=== PATIENT | female | born 1995 | race African-American/Black ===

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

== ENCOUNTER 2017-01-05 12:52 | Emergency (ER) | payer MEDICAID ==
[~2017-01-05] VITALS: Ht 160 cm; Wt 64.0 kg
[2017-01-05] MEDS ORDERED: SODIUM CHLORIDE 0.9% 1,000 ML IV ONE (13:30)
[2017-01-05] MEDS ORDERED: MORPHINE SULFATE 4 MG/ML CPJ (NOT FOR IM USE) IV STA (13:30)
[2017-01-05] MEDS ORDERED: ONDANSETRON HCL 4MG/2ML VIAL IV STA (13:30)
[2017-01-05 14:14] LABS: CLARITY URINE CLEAR (CLEAR); COLOR URINE YELLOW (YELLOW); GLUCOSE URINE NEGATIVE (NEGATIVE); KETONES URINE NEGATIVE (NEGATIVE); LEUKOCYTE ESTERASE URINE TRACE (NEGATIVE); NITRITE URINE NEGATIVE (NEGATIVE); OCCULT BLOOD URINE NEGATIVE (NEGATIVE); PROTEIN URINE NEGATIVE (NEGATIVE); SPECIFIC GRAVITY URINE 1.026 (1.005-1.030); UROBILINOGEN URINE 0.2 E.U./dL (0.2-1.0)
[2017-01-05 14:49] LABS: HEMATOCRIT. 40.1 % (36.0-48.0); HEMOGLOBIN. 12.9 g/dL (12.0-16.0); MEAN CORPUSCULAR HEMOGLOBIN 25.8 pg (28.0-32.0); MEAN CORPUSCULAR VOLUME 79.7 fL (81.0-99.0); MEAN PLATELET VOLUME 8.2 fl (7.4-10.4); PLATELET 185 x1000/uL (130-400); RED BLOOD CELL COUNT 5.02 mill/uL (4.2-5.4); RED CELL DISTRIBUTION WIDTH 16.1 % (11.6-14.6)
[2017-01-05 14:55] LABS: CHLORIDE 108 mEq/L (98-107)
[2017-01-05 15:05] LABS: CARBON DIOXIDE 22 mEq/L (21-32)
[2017-01-05 15:18] LABS: HCG SCREEN NEGATIVE
[2017-01-05 16:21] LABS: PLATELET ESTIMATE NORMAL
[2017-01-05 17:10] VITALS: BP 115/69
== END 2017-01-05 17:21 | disposition home or self-care (01) ==
LOC: ER 14:06
DX: R10.9 Unspecified abdominal pain (principal); R11.2 Nausea with vomiting, unspecified; R12 Heartburn
CPT/HCPCS: 36415; 80053; 81001; 83690; 84703; 85025; 96374; 96375; 99284; J2270; J2405; J7030; Z7610

== ENCOUNTER 2017-03-16 16:44 | Emergency (ER) | payer MEDICAID ==
[~2017-03-16] VITALS: Ht 165.1 cm; Wt 63.0 kg
[2017-03-17 00:33] LABS: HCG SCREEN NEGATIVE
[2017-03-17 00:34] LABS: CLARITY URINE TURBID (CLEAR); COLOR URINE YELLOW (YELLOW); GLUCOSE URINE NEGATIVE (NEGATIVE); KETONES URINE 2+ (NEGATIVE); LEUKOCYTE ESTERASE URINE 2+ (NEGATIVE); NITRITE URINE NEGATIVE (NEGATIVE); OCCULT BLOOD URINE 2+ (NEGATIVE); PROTEIN URINE 2+ (NEGATIVE); SPECIFIC GRAVITY URINE 1.031 (1.005-1.030)
[2017-03-17 01:43] VITALS: BP 129/81
== END 2017-03-17 02:12 | disposition home or self-care (01) ==
LOC: ER 17:47
DX: N39.0 Urinary tract infection, site not specified (principal)
CPT/HCPCS: 81001; 81003; 84703; 99283; 99284

== ENCOUNTER 2017-07-04 09:47 | Emergency (ER) | payer MEDICAID ==
[~2017-07-04] VITALS: Ht 162.6 cm; Wt 64.0 kg
[2017-07-04] MEDS ORDERED: PREDNISONE 20MG TABLET PO ONE (11:30)
[2017-07-04] MEDS ORDERED: KETOROLAC 60MG/2ML VIAL IM ONE (11:30)
[2017-07-04 12:03] VITALS: BP 118/79
== END 2017-07-04 13:22 | disposition home or self-care (01) ==
LOC: ER 10:06
DX: J03.90 Acute tonsillitis, unspecified (principal)
CPT/HCPCS: 81025; 87070; 87430; 87804; 96372; 99284; J1885; J7512

== ENCOUNTER 2017-09-13 16:05 | Emergency (ER) | payer MEDICAID ==
[~2017-09-13] VITALS: Ht 162.6 cm; Wt 68.0 kg
[2017-09-13 16:11] VITALS: BP 118/78
[2017-09-13 16:53] LABS: EOSINOPHILS % 1.5 % (0.0-5.0); HEMATOCRIT. 37.1 % (36.0-48.0); HEMOGLOBIN. 12.2 g/dL (12.0-16.0); LYMPHOCYTES % 22.2 % (20.0-50.0); MEAN CORPUSCULAR VOLUME 78.9 fL (81.0-99.0); MEAN PLATELET VOLUME 7.5 fl (7.4-10.4); MONOCYTES % 5.5 % (2.0-8.0); NEUTROPHILS % 69.8 % (40.0-76.0); PLATELET 280 x1000/uL (130-400); RED CELL DISTRIBUTION WIDTH 15.9 % (11.6-14.6)
[2017-09-13 16:55] LABS: HCG SCREEN POSITIVE
[2017-09-13 16:58] LABS: PROTHROMBIN TIME 10.9 sec (9.4-11.6)
[2017-09-13 16:59] LABS: CHLORIDE 106 mEq/L (98-107)
== END 2017-09-14 | disposition left against medical advice (07) ==
LOC: ER 16:05
DX: R10.2 Pelvic and perineal pain (principal); Z98.890 Other specified postprocedural states
CPT/HCPCS: 36415; 80053; 83690; 84703; 85025; 85610; 99284

== ENCOUNTER 2018-01-03 14:03 | Observation (INO) | payer MEDICAID ==
[~2018-01-03] VITALS: Ht 167.6 cm; Wt 67.6 kg
[2018-01-03] MEDS ORDERED: PNV1TABL50 PO (14:25)
[2018-01-03] MEDS ORDERED: FERR325T6 PO (14:26)
[2018-01-03] MEDS ORDERED: CALC-1042 PO (14:27)
[2018-01-03] MEDS ORDERED: FOLI-43 PO (14:28)
== END 2018-01-03 16:10 | disposition home or self-care (01) ==
LOC: L&D 14:03
PROVIDERS: ADMIT Obstetrics & Gynecology; ATTEND Obstetrics & Gynecology
DX: O62.9 Abnormality of forces of labor, unspecified (principal); O26.899 Other specified pregnancy related conditions, unspecified trimester; R10.9 Unspecified abdominal pain; Z3A.00 Weeks of gestation of pregnancy not specified
CPT/HCPCS: 99281; G0378

== ENCOUNTER 2018-04-16 08:29 | Observation (INO) | payer MEDICAID ==
[~2018-04-16] VITALS: Ht 167.6 cm; Wt 77.6 kg
[~2018-04-16 08:29] MED LIST: CALC-1042 PO; FERR325T6 PO; FOLI-43 PO; PNV1TABL50 PO
[2018-04-16] MEDS ORDERED: LACTATED RINGERS 1,000 ML IV SCH (10:15)
== END 2018-04-16 13:00 | disposition home or self-care (01) ==
LOC: L&D 08:29
PROVIDERS: ADMIT Obstetrics & Gynecology; ATTEND Obstetrics & Gynecology
DX: O46.93 Antepartum hemorrhage, unspecified, third trimester (principal); Z3A.36 36 weeks gestation of pregnancy
CPT/HCPCS: 76815; 76818; 99281; G0378; 96360; 96361; J7120

== ENCOUNTER 2018-05-04 19:04 | Inpatient (IN) | payer MEDICAID ==
[~2018-05-04] VITALS: Ht 167.6 cm; Wt 80.7 kg
[2018-05-04] MEDS ORDERED: DEXT 5%/LACTATED RINGERS 1,000 ML IV SCH (20:00)
[2018-05-04] MEDS ORDERED: DEXT 5%/LR + PITOCIN 20UNITS/L 1,000 ML IV SCH (20:52)
[2018-05-04] MEDS ORDERED: LIDOCAINE HCL 1% 20ML VIAL (Pyxis) INJ INFIL SCH (21:00)
[2018-05-04] MEDS ORDERED: METHYLERGONOVINE MALEATE 0.2 MG/ML IM PRN (21:00)
[2018-05-04] MEDS ORDERED: CARBOPROST TROMETHAMINE 250 MCG/ML AMPUL IM PRN (21:00)
[2018-05-04] MEDS ORDERED: MISOPROSTOL 100MCG TABLET VG SCH (21:00)
[2018-05-04] MEDS ORDERED: PENICILLIN G POTASSIUM 5 MMU in DEXT 5% WATER 100 ML IV NR (21:15)
[2018-05-04] MEDS: BUTORPHANOL TARTRATE 2 MG/ML VIAL IV PRN (21:29)
[2018-05-04] MEDS: LACTATED RINGERS 1,000 ML IV SCH (21:29)
[2018-05-04 22:59] LABS: CLARITY URINE CLEAR (CLEAR); COLOR URINE YELLOW (YELLOW); KETONES URINE 3+ (NEGATIVE); LEUKOCYTE ESTERASE URINE 2+ (NEGATIVE); NITRITE URINE NEGATIVE (NEGATIVE); OCCULT BLOOD URINE TRACE (NEGATIVE); PH URINE 7.5 (4.5-8.0); PROTEIN URINE NEGATIVE (NEGATIVE); SPECIFIC GRAVITY URINE 1.016 (1.005-1.030); UROBILINOGEN URINE 0.2 E.U./dL (0.2-1.0)
[2018-05-04 22:59] LABS: BASOPHILS % 0.5 % (0.0-2.0); EOSINOPHILS % 0.2 % (0.0-5.0); HEMATOCRIT. 38.7 % (36.0-48.0); LYMPHOCYTES % 9.2 % (20.0-50.0); MEAN CORPUSCULAR HEMOGLOBIN 28.6 pg (28.0-32.0); MEAN CORPUSCULAR VOLUME 84.7 fL (81.0-99.0); MONOCYTES % 4.2 % (2.0-8.0); NEUTROPHILS % 85.9 % (40.0-76.0); PLATELET 184 x1000/uL (130-400); RED BLOOD CELL COUNT 4.56 mill/uL (4.2-5.4); RED CELL DISTRIBUTION WIDTH 15.3 % (11.6-14.6)
[2018-05-04 23:06] LABS: PARTIAL THROMBOPLASTIN TIME 28.8 sec (23.4-31.0); PROTHROMBIN TIME 9.8 sec (9.1-11.1)
[2018-05-04 23:09] LABS: *AMPHETAMINES SCREEN URINE NEGATIVE (NEGATIVE); *BARBITURATES SCREEN URINE NEGATIVE (NEGATIVE); *BENZODIAZEPINES SCREEN URINE NEGATIVE (NEGATIVE); *COCAINE SCREEN URINE NEGATIVE (NEGATIVE); METHADONE URINE SCREEN NEGATIVE (NEGATIVE); OPIATES URINE SCREEN NEGATIVE (NEGATIVE)
[2018-05-04 23:10] LABS: CANNABINOID URINE SCREEN NEGATIVE (NEGATIVE); PHENCYCLIDINE URINE SCREEN NEGATIVE (NEGATIVE)
[2018-05-05] MEDS: BUTORPHANOL TARTRATE 2 MG/ML VIAL IV PRN (01:03)
[2018-05-05] MEDS ORDERED: BUPIVACAINE HCL/NS/PF EPIDURAL 100 ML EP ONE ×2 (03:04→11:06)
[2018-05-05] MEDS: PENICILLIN G POTASSIUM 2.5 MMU in DEXTROSE 5% WATER 50 ML IV SCH ×2 (04:12→09:54)
[2018-05-05] MEDS: LACTATED RINGERS 1,000 ML IV SCH ×2 (04:16→09:53)
[2018-05-05] MEDS ORDERED: PNEUMOCOCCAL 23-VAL P-SAC VAC 0.5 ML IM ONE (08:00)
[2018-05-05 08:14] LABS: HEPATITIS B SURFACE ANTIGEN NEGATIVE
[2018-05-05] MEDS ORDERED: INFLUENZA VIRUS VACCINE(AFLURIA) 0.5ML SYR IM ONE (10:00)
[2018-05-05] MEDS ORDERED: LIDOCAINE HCL/PF 2% 20MG/ML 5 ML/VIAL ONE (11:01)
[2018-05-05] MEDS ORDERED: FENTANYL CITRATE/PF 50MCG/ML 2ML VIAL ONE (11:07)
[2018-05-05] MEDS ORDERED: DEXT 5%/LR + PITOCIN 20UNITS/L 1,000 ML IV SCH (14:43)
[2018-05-05] MEDS ORDERED: GLYCERIN/WITCH HAZEL LEAF MEDICATED PAD TOP PRN (14:45)
[2018-05-05] MEDS ORDERED: BENZOCAINE/LANOLIN/ALOE VERA SPRAY TOP PRN (14:45)
[2018-05-05] MEDS ORDERED: BISACODYL 10MG SUPP PR PRN (14:45)
[2018-05-05] MEDS ORDERED: ACETAMINOPHEN WITH CODEINE 300/30MG TABLET PO PRN (14:45)
[2018-05-05] MEDS ORDERED: METHYLERGONOVINE MALEATE 0.2 MG/ML ONE (15:33)
[2018-05-05 16:10] VITALS: BP 134/87
[2018-05-05 16:40] VITALS: BP 129/80
[2018-05-05] MEDS: ACETAMINOPHEN WITH CODEINE 300/30MG TABLET PO PRN (16:43)
[2018-05-05] MEDS: DOCUSATE SODIUM 100MG CAPSULE PO SCH (21:00)
[2018-05-05] MEDS: MAGNESIUM/ALUMINUM HYDROXIDE/SIMETHICONE 30ML UDC PO SCH (21:00)
[2018-05-05 22:00] VITALS: BP 130/68
[2018-05-05] MEDS: SIMETHICONE 80MG TABLET CHEW PO SCH (22:38)
[2018-05-06] MEDS: IBUPROFEN 400MG TABLET PO PRN ×2 (00:46→15:06)
[2018-05-06 04:30] VITALS: BP 102/55
[2018-05-06 07:29] LABS: BASOPHILS % 0.5 % (0.0-2.0); EOSINOPHILS % 0.1 % (0.0-5.0); HEMOGLOBIN. 11.1 g/dL (12.0-16.0); LYMPHOCYTES % 11.3 % (20.0-50.0); MEAN CORPUSCULAR HEMOGLOBIN 28.6 pg (28.0-32.0); MEAN PLATELET VOLUME 8.2 fl (7.4-10.4); MONOCYTES % 7.4 % (2.0-8.0); NEUTROPHILS % 80.7 % (40.0-76.0); PLATELET 153 x1000/uL (130-400); RED BLOOD CELL COUNT 3.89 mill/uL (4.2-5.4); RED CELL DISTRIBUTION WIDTH 15.8 % (11.6-14.6)
[2018-05-06 08:20] VITALS: BP 104/66
[2018-05-06] MEDS ORDERED: TETANUS, DIPHTHERIA, PERTUSSIS VAC/PF 0.5ML (>7YR OLD) IM ONE (09:00)
[2018-05-06] MEDS: PRENATAL VIT/FE FUMARATE/FA TABLET PO SCH (09:36)
[2018-05-06] MEDS: MAGNESIUM/ALUMINUM HYDROXIDE/SIMETHICONE 30ML UDC PO SCH ×3 (09:36→21:00)
[2018-05-06] MEDS: SIMETHICONE 80MG TABLET CHEW PO SCH ×3 (09:37→21:00)
[2018-05-06 16:20] VITALS: BP_SYST 104; BP_SYST 106; BP_DIAS 57; BP_DIAS 66
[2018-05-06 21:00] VITALS: BP 113/57
[2018-05-06] MEDS: DOCUSATE SODIUM 100MG CAPSULE PO SCH (21:26)
[2018-05-07 04:20] VITALS: BP 106/60
[2018-05-07 08:00] VITALS: BP 111/63
[2018-05-07] MEDS: PRENATAL VIT/FE FUMARATE/FA TABLET PO SCH (09:54)
[2018-05-07] MEDS: MAGNESIUM/ALUMINUM HYDROXIDE/SIMETHICONE 30ML UDC PO SCH (09:54)
[2018-05-07] MEDS: SIMETHICONE 80MG TABLET CHEW PO SCH (09:55)
[2018-05-07] MEDS: ACETAMINOPHEN WITH CODEINE 300/30MG TABLET PO PRN (09:55)
== END 2018-05-07 14:30 | disposition home or self-care (01) | DRG 560 ==
LOC: L&D 19:04 → OBSVTOIN 19:04 → UNDODISOB 05-05 01:03 → 7EST PP/OB 05-05 16:28
PROVIDERS: ADMIT Obstetrics & Gynecology; ATTEND Obstetrics & Gynecology
PROC: 3E0R3BZ Introduction of Anesthetic Agent into Spinal Canal, Percutaneous Approach (ICD-10-PCS; 2018-05-05)
PROC: 00HU33Z Insertion of Infusion Device into Spinal Canal, Percutaneous Approach (ICD-10-PCS; 2018-05-05)
PROC: 10E0XZZ Delivery of Products of Conception, External Approach (ICD-10-PCS; principal; 2018-05-05 14:10)
DX: O77.0 Labor and delivery complicated by meconium in amniotic fluid (principal); Z37.0 Single live birth; Z3A.00 Weeks of gestation of pregnancy not specified
CPT/HCPCS: 36415; 80305; 86592; 86703; 86762; 86850; 86900; 87340; 90686; 90715; 99281; J0595; J2210; J2540; J2590; J3010; J3490; J7060; J7120; J7121; A4315

== ENCOUNTER 2018-07-22 09:49 | Emergency (ER) | payer MEDICAID ==
[~2018-07-22] VITALS: Ht 167.6 cm; Wt 64.0 kg
[2018-07-22 11:52] VITALS: BP 119/77
== END 2018-07-22 11:52 | disposition home or self-care (01) ==
LOC: ER 09:49
DX: N61.0 Mastitis without abscess (principal); F17.200 Nicotine dependence, unspecified, uncomplicated; Z98.890 Other specified postprocedural states
CPT/HCPCS: 99281

== ENCOUNTER 2019-03-17 18:57 | Emergency (ER) | payer MEDICAID ==
[~2019-03-17] VITALS: Ht 167.6 cm; Wt 62.0 kg
[2019-03-17] MEDS ORDERED: THROAT LOZENGES-BENZOCAINE/MENTH/CETYLPYRD CL LOZENGES MM ONE (20:15)
[2019-03-17] MEDS ORDERED: ACETAMINOPHEN 325MG TABLET PO ONE (20:15)
[2019-03-17] MEDS ORDERED: DEXAMETHASONE 10 MG/ML VIAL PO ONE (21:45)
[2019-03-17 21:56] VITALS: BP 112/78
== END 2019-03-17 21:58 | disposition home or self-care (01) ==
LOC: ER 18:57
DX: J02.9 Acute pharyngitis, unspecified (principal); Z98.890 Other specified postprocedural states
CPT/HCPCS: 87070; 87430; 99283; J1100; Z7610

== ENCOUNTER 2019-05-01 20:19 | Emergency (ER) | payer MEDICAID, OTHER ==
[~2019-05-01] VITALS: Ht 170.2 cm; Wt 66.0 kg
[2019-05-01] MEDS ORDERED: DEXAMETHASONE 10 MG/ML VIAL IV ONE (22:45)
[2019-05-01] MEDS ORDERED: DIPHENHYDRAMINE 50MG/ML VIAL IV ONE (22:45)
[2019-05-02 01:06] VITALS: BP 132/74
== END 2019-05-02 01:06 | disposition home or self-care (01) ==
LOC: ER 20:19
DX: T78.40XA Allergy, unspecified, initial encounter (principal); X58.XXXA Exposure to other specified factors, initial encounter
CPT/HCPCS: 96374; 96375; 99283; J1100; J1200; Z7610

== ENCOUNTER 2020-06-08 12:40 | Emergency (ER) | payer MEDICAID, OTHER ==
[~2020-06-08] VITALS: Ht 167.6 cm; Wt 67.0 kg
[2020-06-08 13:58] VITALS: BP 120/72
[2020-06-08] MEDS: KETOROLAC 30MG/ML VIAL IM ONE (13:58)
== END 2020-06-08 14:48 | disposition home or self-care (01) ==
LOC: ER 12:40
DX: J03.90 Acute tonsillitis, unspecified (principal)
CPT/HCPCS: 81025; 96372; 99283; J1885

== ENCOUNTER 2020-06-10 16:16 | Emergency (ER) | payer MEDICAID ==
[~2020-06-10] VITALS: Ht 167.6 cm; Wt 67.0 kg
[2020-06-10] MEDS ORDERED: IBUPROFEN 600MG TABLET PO ONE (17:45)
[2020-06-10 18:47] VITALS: BP 114/69
== END 2020-06-10 18:51 | disposition home or self-care (01) ==
LOC: ER 16:16
DX: J03.90 Acute tonsillitis, unspecified (principal)
CPT/HCPCS: 87070; 87430; 99283

== ENCOUNTER 2020-08-06 22:39 | Emergency (ER) | payer MEDICAID ==
[~2020-08-06] VITALS: Ht 167.6 cm; Wt 67.0 kg
[2020-08-06] MEDS ORDERED: IBUPROFEN 600MG TABLET PO ONE (23:45)
[2020-08-07 00:25] VITALS: BP 120/84
== END 2020-08-07 00:27 | disposition home or self-care (01) ==
LOC: ER 22:39
DX: R55 Syncope and collapse (principal); R07.89 Other chest pain; Z98.890 Other specified postprocedural states; Z79.899 Other long term (current) drug therapy
CPT/HCPCS: 71045; 81025; 82962; 93005; 99283

== ENCOUNTER 2021-07-14 09:25 | Emergency (ER) | payer MEDICAID, OTHER ==
[~2021-07-14] VITALS: Ht 167.6 cm; Wt 69.0 kg
[2021-07-14 09:33] VITALS: BP 131/84
[2021-07-14] MEDS ORDERED: TETANUS, DIPHTHERIA, PERTUSSIS VAC/PF 0.5ML (>10YR OLD) IM ONE (10:30)
[2021-07-14] MEDS ORDERED: LIDOCAINE HCL 1% 20ML VIAL (Pyxis) INJ INFIL ONE (10:30)
[2021-07-14] MEDS ORDERED: AMOX-424 MT (15:28)
== END 2021-07-14 16:56 | disposition home or self-care (01) ==
LOC: ER 09:25
DX: O26.892 Other specified pregnancy related conditions, second trimester (principal); S61.354A Open bite of right ring finger with damage to nail, initial encounter; S21.052A Open bite of left breast, initial encounter; M79.89 Other specified soft tissue disorders; Z3A.16 16 weeks gestation of pregnancy; Z91.018 Allergy to other foods; Y04.1XXA Assault by human bite, initial encounter; Y93.89 Activity, other specified; Y92.89 Other specified places as the place of occurrence of the external cause
CPT/HCPCS: 73120; 76805; 81025; 90471; 90715; 99284

== ENCOUNTER 2025-04-24 19:42 | Emergency (ER) | payer OTHER, MEDICAID ==
[~2025-04-24] VITALS: Ht 165.1 cm; Wt 69.0 kg
[~2025-04-24 19:42] MED LIST changes: +AMOX-424 MT
[2025-04-24 20:00] VITALS: O2SAT 100
[2025-04-24] MEDS ORDERED: IBUP-2028 MT (22:16)
[2025-04-24] MEDS ORDERED: LIDO-53 TP (22:16)
[2025-04-24 23:08] VITALS: BP 125/75; PULSE 83; RESP 18; TEMP 36.8; O2SAT 98
== END 2025-04-24 23:10 | disposition home or self-care (01) ==
LOC: ER 19:42
DX: S16.1XXA Strain of muscle, fascia and tendon at neck level, initial encounter (principal); S39.012A Strain of muscle, fascia and tendon of lower back, initial encounter; V89.2XXA Person injured in unspecified motor-vehicle accident, traffic, initial encounter; Y92.410 Unspecified street and highway as the place of occurrence of the external cause; Y93.89 Activity, other specified; Y99.8 Other external cause status
CPT/HCPCS: 29125; 71111; 73110; 73562; 99284